=== PATIENT | female | born 1945 | race Caucasian/White ===

== ENCOUNTER → 2016-02-28 | Outpatient (CLI) | payer OTHER ==
[~2016-02-28] MED LIST: ASPCH81 PO; CLTP PO
[2016-02-28 13:46] LABS: BASO % 0.3 %; BASO ABS # 0.02 K/uL (0-0.2); COMPLETE YES; EOS % 0.9 %; HEMATOCRIT 37.1 % (37-47); IG% 0.2 %; LYMPH % 28.7 %; LYMPH ABS # 1.68 K/uL (1.2-3.4); MEAN CELL VOLUME 82.3 fL (80-100); MEAN CORPUSCULAR HEMOGLOBIN 27.5 pg (25-34); MEAN CORPUSCULAR HGB CONC 33.4 g/dl (32-36); MEAN PLATELET VOLUME 9.1 fL (7.4-10.4); MONO % 7.8 %; NEUT % 62.1 %; PLATELET COUNT 312 K/uL (130-400); RED BLOOD COUNT 4.51 M/uL (4.2-5.4); WHITE BLOOD COUNT 5.86 K/uL (4.8-10.8)
--- NOTE | 2016-02-28 13:51 | DIAGNOSTIC IMAGING REPORT ---
CHEST 2 VIEWS ROUTINE CLINICAL HISTORY: Atypical chest pain COMPARISON STUDY: No previous studies for comparison. FINDINGS: The cardiac and mediastinal contours are normal. There is no evidence of focal pulmonary consolidation. There is no evidence of failure. No pleural effusions are visualized.[ There is an air-containing retrocardiac opacity consistent with a hiatal hernia. IMPRESSION: No active disease in the chest. Electronically signed by: Brayden Ham M.D. 02/28/2016 1:49 PM
[2016-02-28 15:02] LABS: ALT/SGPT 26 U/L (12-78); AST/SGOT 15 U/L (15-37); BLOOD UREA NITROGEN 12 mg/dl (7-18); BUN/CREATININE RATIO 19.3 (10-20); CALCIUM 9.1 mg/dl (8.5-10.1); CARBON DIOXIDE 25 mmol/L (21-32); CHLORIDE 104 mmol/L (98-107); CREATININE 0.64 mg/dl (0.60-1.20); GLUCOSE 93 mg/dl (70-99); POTASSIUM 3.9 mmol/L (3.5-5.1); SODIUM 140 mmol/L (136-145)
[2016-02-28 15:09] LABS: ALB/GLOB RATIO 1.2 (0.9-2); ALKALINE PHOSPHATASE 87 U/L (45-117)
== END | disposition home or self-care (01) ==
LOC: C.RADBC 12:53
PROVIDERS: ATTEND Family Medicine
DX: R07.9 Chest pain, unspecified (principal)

== ENCOUNTER → 2016-03-13 | Outpatient (CLI) | payer OTHER ==
--- NOTE | 2016-03-13 16:56 | MAMMOGRAPHY REPORT ---
BILATERAL DIGITAL DIAGNOSTIC MAMMOGRAM TOMOSYNTHESIS WITH CAD: 03/13/2016 CLINICAL HISTORY: Routine screening. Patient has no complaints. TECHNIQUE: Bilateral CC and MLO 2-D digital and tomosynthesis images, spot magnification left CC and ML views were obtained. Current study was also evaluated with a Computer Aided Detection (CAD) sys tem. COMPARISON: Comparison is made to exams dated: 09/05/2015 mammogram, 03/07/2015 mammogram, 09/01/2014 m ammogram, 02/08/2010 mammogram, 02/07/2009 mammogram - [facility], and 02/01/2008. BREAST COMPOSITION: The tissue of both breasts is heterogeneously dense, which may obscure small ma sses. FINDINGS: There is expected architectural distortion and associated central dystrophic calcification in the 9:00 middle one third of the left breast, at the site of prior lumpectomy. There are adelaida us rodlike secretory calcifications throughout the left mid of the right breast and a few benign rim calcifications. The rodlike calcifications are larger and more coarse when comparing to prior exam s, confirming benignity. No new suspicious mass, architectural distortion or cluster of microcalcif ications is seen. IMPRESSION: ACR BI-RADS CATEGORY 2: BENIGN Stable bilateral mammograms, without mammographic evidence of malignancy. Stable post surgical rae ges in the 9:00 left breast. Recommend bilateral mammography in one year and would recommend remain ing a diagnostic patient in case any additional spot magnification views are needed. These results and recommendations were discussed with the patient at the time of the exam. Approximately 10% of breast cancers are not detected with mammography. A negative mammographic repor t should not delay biopsy if a clinically suggestive mass is present. Renetta Lowe M.D. ay/:03/13/2016 15:10:57 Mining Teacher: Jalyn JONES(Michelle)(Ann), [facility] letter sent: Normal 1/2 BI-RADS Code: ACR BI-RADS Category 2: Benign
== END | disposition home or self-care (01) ==
LOC: C.MAMM 12:44
PROVIDERS: ATTEND Surgery
DX: R92.8 Other abnormal and inconclusive findings on diagnostic imaging of breast (principal)

== ENCOUNTER → 2016-10-10 | Outpatient (CLI) | payer OTHER ==
[2016-10-10 13:25] LABS: HEMATOCRIT 37.6 % (37-47)
[2016-10-10 14:10] LABS: ESTIMATED AVERAGE GLUCOSE 126 mg/dl; HA1C FLAG Normal (Normal)
[2016-10-10 15:09] LABS: ALT/SGPT 23 U/L (12-78); BLOOD UREA NITROGEN 18 mg/dl (7-18); BUN/CREATININE RATIO 27.1 (10-20); CALCIUM 8.9 mg/dl (8.5-10.1); CARBON DIOXIDE 27 mmol/L (21-32); CHLORIDE 107 mmol/L (98-107); CREATININE 0.66 mg/dl (0.60-1.20); GLUCOSE 98 mg/dl (70-99); POTASSIUM 3.9 mmol/L (3.5-5.1); SODIUM 140 mmol/L (136-145)
== END | disposition home or self-care (01) ==
LOC: C.LABMFLN 08:14
PROVIDERS: ATTEND Family Medicine
DX: E66.01 Morbid (severe) obesity due to excess calories (principal); D64.9 Anemia, unspecified; R73.03 Prediabetes

== ENCOUNTER → 2017-03-05 | Outpatient (CLI) | payer OTHER ==
--- NOTE | 2017-03-05 15:32 | MAMMOGRAPHY REPORT ---
BILATERAL DIGITAL SCREENING MAMMOGRAM TOMOSYNTHESIS WITH CAD: 03/05/2017 CLINICAL HISTORY: Asymptomatic. Personal history of breast cancer. TECHNIQUE: Breast tomosynthesis in addition to standard 2D mammography was performed. Current study was also evaluated with a Computer Aided Detection (CAD) system. COMPARISON: Comparison is made to exams dated: 03/13/2016 mammogram, 03/07/2015 mammogram, 11/30/2013 m ammogram, 06/24/2012 mammogram, 03/20/2011 mammogram, and 02/08/2010 mammogram - [facility]. BREAST COMPOSITION: The tissue of both breasts is heterogeneously dense, which may obscure small mas ses. FINDINGS: No suspicious masses, calcifications, or areas of architectural distortion are noted in ei ther breast. There has been no significant interval change compared to prior exams. There are stable postoperative changes in the left medial breast from prior lumpectomy, including architectural disto rtion and coarse benign dystrophic calcifications at the surgical bed. Scattered bilateral benign-ap pearing calcifications are not significantly changed. IMPRESSION: ACR BI-RADS CATEGORY 2: BENIGN There is no mammographic evidence of malignancy. A 1 year screening mammogram is recommended. The pa tient will receive written notification of the results. Approximately 10% of breast cancers are not detected with mammography. A negative mammographic report should not delay biopsy if a clinically suggestive mass is present. Rissa Browne M.D. /:03/05/2017 14:14:37 Lens Polisher: Beth JONES(Michelle)(Ann), [facility] letter sent: Normal 1/2 BI-RADS Code: ACR BI-RADS Category 2: Benign
== END | disposition home or self-care (01) ==
LOC: C.MAMM 13:02
PROVIDERS: ATTEND Obstetrics & Gynecology
DX: Z12.31 Encounter for screening mammogram for malignant neoplasm of breast (principal); Z85.3 Personal history of malignant neoplasm of breast

== ENCOUNTER → 2017-06-10 | Outpatient (CLI) | payer OTHER | END | disposition home or self-care (01) | LOC: C.PAPS 16:14 | PROVIDERS: ATTEND Obstetrics & Gynecology | DX: Z12.4 Encounter for screening for malignant neoplasm of cervix (principal) ==

== ENCOUNTER 2019-11-30 09:36 | Observation (INO) ==
--- NOTE | 2019-11-25 16:25 | Anesthesiology Consultation ---
Date of Service November 25, 2019 Assessment & Plan (1) Encounter for pre-operative examination: - Per assessment on 11/24: Travel screen- negative. No known COVID-19 positive contacts or current COVID-19 related symptoms. Patient had preop COVID testing 11/24 ([place]). Results pending. - S/P EGD: 10/28/19: MAC sedation at [facility] - S/P lap christiano: 10/30/17: Grade view 1, DVL --> Glidescope MAC#3, atraumatic, ETT 7.0 at [facility] Chart Review Chart Review: Acceptable Risk for Surgery and Patient NOT seen in Pre Admission Testing History Surgery Operation Date: 11/30/19 11:25 Proposed Procedures p Laparoscipic Hiatal Hernia Repair with Fundoplication - Buck Morales, Height/Weight Height: 4 ft 11.5 in Weight: 87.09 kg Allergies Allergy/AdvReac Type Severity Reaction Status Date / Time chlorhexidine Allergy Severe severe Verified 11/25/19 16:19 itching, burning perfume Allergy Severe watery Verified 11/25/19 16:19 eyes, sneezing latex Allergy Intermediate hives Verified 11/25/19 16:19 cat dander Allergy Unknown congestion Verified 11/25/19 13:25 Sulfa (Sulfonamide AdvReac Severe dizziness, Verified 11/25/19 16:19 Antibiotics) lights flashing, "sees things" vinyl Allergy Unknown contact Uncoded 11/25/19 16:19 dermatitis, redness, swelling Medications Home Medications Medication Instructions Recorded Confirmed Last Taken aspirin [Aspirin Low Dose] 81 mg PO QPM #0 10/21/17 11/25/19 10/22/19 losartan 25 mg tablet 25 mg PO QPM #90 tab 05/05/19 11/25/19 10/27/19 21:30 esomeprazole magnesium 40 mg 40 mg PO DAILY@1400 #90 cap 07/27/19 11/25/19 10/27/19 14:00 capsule,delayed release calcium carbonate [Calcium 500] 500 mg PO Q OTHER DAY 10/22/19 11/25/19 10/26/19 fluticasone propionate [Flonase] 1 spray INTRANASAL BID PRN 11/25/19 11/25/19 Unknown Past Medical History Medical History (Updated 10/01/20 @ 16:20 by Jocelyn Caceres) Chronic back pain GERD (gastroesophageal reflux disease) History of breast cancer DCIS L breast; s/p XRT (2014) Hypertension Obesity Prediabetes per records Past Family History Family History Father Heart disease Myocardial infarction Sister Heart disease Myocardial infarction Brother Heart disease Mother Breast cancer Denies family history of Ovarian cancer Prostate cancer Colorectal cancer Colonic polyp Past Surgical History Surgical History (Updated 11/25/19 @ 16:24 by Jocelyn Caceres) History of bilateral tubal ligation History of breast biopsy LEFT History of carpal tunnel release BILATERAL History of cataract surgery BILATERAL History of colonoscopy History of difficult intubation lap christiano: 10/30/17: Grade view 1, DVL --> Glidescope MAC#3, atraumatic, ETT 7.0 at [facility] History of esophagogastroduodenoscopy (EGD) History of esophagogastroduodenoscopy (EGD) (10/28/19) Esophagogastroduodenoscopy Dr. Morales 10/28/2019 History of laparoscopic cholecystectomy Laparoscopic Cholecystectomy 10-30-17 Dr. Morales History of total knee replacement BILATERAL Past Anesthesia History Difficult Airway (lap christiano: 10/30/17: Grade view 1, DVL --> Glidescope MAC#3, atraumatic, ETT 7.0 at [facility]) Social History Smoking Status: Never smoker Do You Dip or Chew Tobacco: No Hx Alcohol Use: Yes Alcohol type: beer, wine and hard liquor alcohol intake frequency: holidays/special occasions only Hx Substance Use: No substance use type: does not use Testing Laboratory Results 10/19/19 WBC: 7.15 H/H: 12.6/39.6 PLATELETS: 353 SODIUM: 139 POTASSIUM: 3.9 CHLORIDE: 106 CO2: 27 BUN: 16 CREATININE: 0.66 GLUCOSE: 99 Electrocardiogram Date: 10/22/19 NSR at 86bpm. Possible LAE. Stress Test Date: 04/01/16 Type: exercise (ECHO) Findings: + WNL and + achieved max HR (92%MPHR); no ischemia Resting EF: 61 [address] LV Function: normal Valvular Disease: no significant valvular disease Negative exercise stress echo and stress EKG for ischemia at 92% MPHR. Mild cLVH
[~2019-11-30 09:36] MED LIST changes: -ASPCH81 PO; +CEFAZOLIN 2000MG 2,000 MG/15 ML SYR IV SCH; -CLTP PO; +LR 15ML/HR IV SCH
[2019-11-30] MEDS ORDERED: HYDROmorphone INJ 1 MG/ML SYRINGE IV PRN (10:13)
[2019-11-30] MEDS ORDERED: ONDANSETRON INJ 2 MG/ML 2 ML VIAL IV PRN ×2 (10:13→15:32)
[2019-11-30] MEDS ORDERED: MEPERIDINE HCL 25 MG/ML CARP/VIAL IV PRN (10:13)
[2019-11-30] MEDS ORDERED: LABETALOL HCL IV 5 MG/ML 20ML IV PRN (10:13)
[2019-11-30] MEDS ORDERED: PHENYLEPHRINE 100MCG/ML 5ML SYR IV PRN (10:13)
[2019-11-30] MEDS ORDERED: ePHEDrine sulfate 50 MG/ML AMP IV PRN (10:13)
[2019-11-30] MEDS ORDERED: ATROPINE SULFATE 0.1 MG/ML 10ML SYR IV PRN (10:13)
[2019-11-30] MEDS ORDERED: MIDAZOLAM HCL 1 MG/ML 2ML VIAL ONE (10:35)
[2019-11-30] MEDS ORDERED: fentaNYL citrate 100 MCG/2 ML VIAL ONE (10:35)
[2019-11-30] MEDS ORDERED: EPINEPHrine INJ 1 MG/ML AMP ONE (11:24)
[2019-11-30] MEDS ORDERED: BUPIVACAINE 0.5 % 5 MG/1 ML MPF 30ML VIAL ONE (11:24)
--- NOTE | 2019-11-30 11:35 | History & Physical Bridge Note ---
Date of Service November 30, 2019 History & Physical Bridge Note I have examined the patient, reviewed the History & Physical and in the interval since the performance of the History & Physical I have noted the following changes of clinical significance: no changes noted
[2019-11-30] MEDS ORDERED: MINERAL OIL LIGHT 10 ML BTL ONE (11:57)
[2019-11-30] MEDS ORDERED: PHENYLEPHRINE 100MCG/ML 5ML SYR ONE (12:33)
[2019-11-30] MEDS ORDERED: PHENYLEPHRINE HCL 10 MG/ML VIAL ONE (12:33)
[2019-11-30] MEDS ORDERED: LABETALOL HCL IV 5 MG/ML 20ML IV ONE (12:33)
[2019-11-30] MEDS ORDERED: LIDOCAINE HCL 2% 2 ML VIAL/AMP(20MG/ML) INFIL ONE (12:33)
[2019-11-30] MEDS ORDERED: ePHEDrine sulfate 50 MG/ML SYR ONE (12:33)
[2019-11-30] MEDS ORDERED: ONDANSETRON INJ 2 MG/ML 2 ML VIAL ONE (12:33)
[2019-11-30] MEDS ORDERED: DEXAMETHASONE SOD INJ 4 MG/ML VIAL ONE (12:33)
[2019-11-30] MEDS ORDERED: NEOSTIGMINE METHYLSULFATE 5 MG/5 ML SYR ONE (12:33)
[2019-11-30] MEDS ORDERED: PROPOFOL IV EMULSION 10 MG/ML 20 ML VIAL IV ONE (12:33)
[2019-11-30] MEDS ORDERED: LARYING-O-JET KIT (LTA) ONE (12:33)
[2019-11-30] MEDS ORDERED: ROCURONIUM BROMIDE 10 MG/ML 5 ML VIAL IV ONE (12:33)
[2019-11-30] MEDS ORDERED: GLYCOPYRROLATE 0.2 MG/ML VIAL ONE ×2 (12:33→14:04)
--- NOTE | 2019-11-30 13:42 | Operative Report ---
PG Post Operative Report Pre & Post Diagnosis Operation Date: 11/30/19 11:25 Pre-Op Diagnosis: Hiatal Hernia;gerd Post-Op Diagnosis: Hiatal Hernia;gerd;adhesions I identified the patient and participated in the time-out.: Yes Procedure Operation Date: 11/30/19 11:25 Actual Procedures p Laparoscopic Hiatal Hernia Repair with 360 degree Fundoplication, posterior gastropexy, enterolysis(Not Applicable) - Buck Morales DO Surgeon Buck Moarles DO Assistant Director Of Nursing bradford Travis Estimated Blood Loss 5 Findings Consistent with Post-Op Diagnosis Specimens none Description of Procedure After informed consent was obtained the patient was taken to the operating room and placed in supine position. After successful intubation the abdomen was sterilely prepped and draped in usual fashion. I began with a supraumbilical incision with an 11 blade scalpel. This was carried down through the soft tissue using cautery. The anterior rectus fascia was opened using cautery and two #0 Vicryl stay sutures were placed. Peritoneum was elevated with hemostats and incised under direct vision using a Metzenbaum scissor. A finger sweep was performed and a 12 mm Pulido trocar was placed. The abdomen was insufflated to 20 mmHg. Laparoscope was inserted and the abdomen examined in 360 degrees. A subxiphoid 12 mm port, a right upper quadrant 5 mm port a right flank 5 mm port and a left flank 5 mm port were all placed under direct vision. The patient was placed in a steep reverse Trendelenburg position. A liver retractor attached to the table was used throughout the case to elevate the left lobe of the liver. There were some adhesions in the upper midline and left upper quadrant from previous surgeries. These involved some stomach and omentum and were taken down using a harmonic scalpel. Once we elevated the left lobe of the liver there was probably 75% of the stomach incarcerated within the thoracic cavity. We were able to gently reduce this using graspers. We began along the right jacqueline of the diaphragm and again using the harmonic scalpel we began taking down the hernia sac. We continued up the right jacqueline of the diaphragm and around anteriorly. Next we moved to the lateral side of the stomach and took down the top 4 or 5 short gastric vessels again using the harmonic scalpel. We continued superiorly and took down the hernia sac attached to the left jacqueline of the diaphragm. We continued up and around until we completely excised the sac in 360 degrees. At this point we had anesthesia passed a 50 Macedonian bougie which occurred without difficulty. Once I took down the hernia sac the entire stomach laid in the abdominal cavity completely reduced and without tension on it. I elevated the stomach and identified the left and right jacqueline of the diaphragm posteriorly. We used 0 Surgidac with the Endo Stitch device to primarily close the hernia defect posteriorly. We then used the same technique using 0 Surgidac and closed the diaphragmatic hernia anteriorly. This was able to be done with minimal tension. Next I created a window posterior to the stomach distal to the diaphragm. A reticulating grasper was able to be placed through this window and reticulated. I was able to easily grasp the fundus of the stomach and pull it through this retrogastric window. I was able to easily perform a shoeshine test and there was minimal tension. I performed a posterior gastropexy again with 0 Surgidac securing the undersurface of the fundus to the right jacqueline of the diaphragm. I then completed the 360 degree fundoplication by using 0 Surgidac to grab body of the stomach lateral to the esophagus grasping a small amount of the esophageal fat pad and then completing it by suturing to the fundus of the stomach which was now on the medial side. 3 separate stitches were used to create a 3 to 4 cm wrap lengthwise. When we removed the bougie the wrap laid nice and tension- free. We irrigated the upper abdomen. There was adequate hemostasis. No other gross abnormalities were identified. The liver retractor was removed as were all of the trochars. We desufflated the abdomen. I closed the fascia of the camera port using 0 Vicryl in a [id number] fashion. The wounds were all irrigated and closed using 4-0 Monocryl. Marcaine was injected around them for postoperative analgesia and skin glue used as a dressing. The patient was awakened extubated and transferred to recovery in stable condition. My physician higher level teaching assistant was present for the entire case. He helped prep the pat ient. He helped run the camera as well as with retraction throughout my dissection. He helped with wound closure and dressing placement as well. I attest to the content of the Intraoperative Record and any orders documented therein. Any exceptions are noted below.
[2019-11-30] MEDS ORDERED: ACETAMINOPHEN 1,000 MG/100 ML VIAL IV STA (14:08)
[2019-11-30] MEDS ORDERED: GLYCOPYRROLATE 0.2 MG/ML VIAL IV ONE (14:09)
[2019-11-30] MEDS ORDERED: ACETAMINOPHEN 1000 MG/100 ML IV IV ONE (14:09)
[2019-11-30] MEDS: fentaNYL citrate 100 MCG/2 ML VIAL IV PRN ×2 (14:11→14:16)
--- NOTE | 2019-11-30 14:48 | Anesthesiology Progress Note ---
Date of Service November 30, 2019 Anesthesia Post Procedure Vital Signs Vital Signs: Temp Pulse Pulse Resp BP Pulse Ox 11/30/19 14:35 36.2 C L 65 16 156/89 H 100 11/30/19 14:25 68 15 156/81 H 98 11/30/19 14:15 75 14 165/75 H 96 11/30/19 14:05 65 13 164/80 H 100 11/30/19 13:55 44 L 44 L 15 163/79 H 99 11/30/19 13:45 52 L 52 L 20 162/71 H 98 11/30/19 13:36 36.3 C L 66 66 21 170/81 H 97 11/30/19 09:57 37.5 C 83 20 160/71 H 100 Pain Intensity Abdomen: Pain Intensity: 2 Transfer of Care Handoff Completed per policy Notes Mental Status: alert / awake / arousable Patient Amnestic to Procedure: Yes Nausea / Vomiting: adequately controlled Pain: adequately controlled Airway Patency, RR, SpO2: stable & adequate BP & HR: stable & adequate Hydration State: stable & adequate Anesthetic Complications: no major complications apparent and Pt Satisfied with anesthetic care Notes: The patient is awake and comfortable.
[2019-11-30] MEDS ORDERED: MoRPHine SULFATE 2 MG/ML CARP IV PRN (15:32)
[2019-11-30] MEDS ORDERED: FLUTICASONE PROPIONATE NA SPR 16 GM BTL NAE PRN (15:32)
[2019-11-30] MEDS ORDERED: PROMETHAZINE HCL 12.5 MG in SODIUM CHLORIDE 0.9% 50 ML IV PRN (15:32)
[2019-11-30] MEDS ORDERED: MoRPHine SULFATE 4 MG/ML 1 ML CARP\\VIAL IV PRN (15:32)
[2019-11-30] MEDS: LACTATED RINGER'S 1,000 ML IV SCH (15:39)
[2019-11-30] MEDS: HYDROCODONE/ACETAMOPHEN 5/325MG TAB PO PRN ×3 (15:50→18:00)
[2019-11-30] MEDS ORDERED: PANTOprazole 40 MG TAB PO SCH (17:00)
[2019-11-30] MEDS ORDERED: HydrALAZINE HCL 20 MG/ML VIAL IV PRN (17:47)
[2019-11-30] MEDS ORDERED: LOSARTAN POTASSIUM 25 MG TAB PO SCH (21:00)
[2019-12-01] MEDS: LACTATED RINGER'S 1,000 ML IV SCH (02:18)
[2019-12-01] MEDS ORDERED: PANTOprazole 40 MG TAB PO STA (07:47)
--- NOTE | 2019-12-01 07:50 | Surgery Progress Note ---
Date of Service December 01, 2019 Assessment & Plan (1) Hiatal hernia: POD 1 lap Odin will give PPI this Am instead afternoon full liquid lunch recheck later for possible d/c as above. griselda liquids. no nausea currently. will re-eval after lunch for possible d/c. pain controlled. no emesis. post op instructions discussed. Admission and Anticipated Discharge Date Admission Date: November 30, 2019 Subjective some nausea overnight, heartburn this Am, minimal pain Physical Exam Gastrointestinal (Abdomen): Inspection/Auscultation: + abdominal surgical incision Percussion/Palpation: abdomen soft Results & Data ([facility]) Vital Signs (Past 12 Hours) Vital Signs Temp Pulse Pulse Resp BP BP Pulse Ox 12/01/19 07:28 36.7 C 68 16 132/52 L 93 12/01/19 02:16 36.6 C 68 16 123/70 94 11/30/19 22:52 36.6 C 87 16 144/73 H 91 11/30/19 20:06 78 147/76 H PG Care Time/CCT Total # of Minutes Spent Total Time Spent with Patient: Total time spent is greater than 50% in coordination of care (as documented) at patient's floor/unit and/or counseling patient: Coding Level of Care Code None Diagnoses Hiatal hernia K44.9
[2019-12-01] MEDS: HYDROCODONE/ACETAMOPHEN 5/325MG TAB PO PRN ×2 (10:34→12:46)
--- NOTE | 2019-12-01 13:34 | Discharge Summary ---
Date of Service December 01, 2019 Principal Diagnosis Hiatal hernia GERD Discharge Exam Gastrointestinal (Abdomen) Inspection/Auscultation: + abdominal surgical incision (clean, dry) Percussion/Palpation: abdomen soft Discharge Data Allergies Allergy/AdvReac Type Severity Reaction Status Date / Time chlorhexidine Allergy Severe severe Verified 11/30/19 10:03 itching, burning perfume Allergy Severe watery Verified 11/30/19 10:03 eyes, sneezing latex Allergy Intermediate hives Verified 11/30/19 10:03 cat dander Allergy Unknown congestion Verified 11/30/19 10:03 Sulfa (Sulfonamide AdvReac Severe dizziness, Verified 11/30/19 10:03 Antibiotics) lights flashing, "sees things" vinyl Allergy Unknown contact Uncoded 11/25/19 16:19 dermatitis, redness, swelling Procedures Performed Operation Date: 11/30/19 11:25 Actual Procedures p Laparoscopic Hiatal Hernia Repair with Fundoplication, posterior gastroplasty, enterolysis(Not Applicable) - Buck Morales DO Hospital Course (1) Hiatal hernia: 74 y/o female with hiatal hernia and GERD was taken to the OR for laparoscopic Odin fundoplication and was transferred to the surgical floor for overnight observation. She had some nausea overnight that resolved by the morning. She was able to tolerate liquid diet and oral analgesics. She was stable for discharge home. Total Time Total Time Spent Total Time Spent (In Minutes): 15 Discharge Plan Discharge Items Patient Disposition: Home - Self-Care Reason For Visit: Hiatal Hernia Discharge Diagnosis: hiatal hernia repair Activity: Per Instructions section Lifting: No more than 10 pounds Bathing Comment: may shower; no soaking in tubs/pools Exercise/Sports: Wait until after follow-up appointment Non-emergency contact: Surgeon Call non-emergency contact if: you have any medication questions, your symptoms worsen, your pain is not controlled, your pain is worsening, you have a fever, your temperature is above 101.5, your wound has increased redness, your wound has increased drainage and your wound pain has increased Follow-up/Referrals: Buck Morales DO [Surgeon] - (Please call to schedule follow up in clinic within 1-2 weeks) Deven oCrtez DO [Primary Care Provider] - Diet: Full liquid Diet Comment: soft/liquidy foods- that can be eaten with a spoon Michael Attending Provider Instructions: Pending Studies at Discharge: No Stand-Alone Forms: [facility] Medications and DC Order Prescriptions: New ondansetron HCl [Zofran] 4 mg tablet 4 mg PO Q6H PRN (Reason: nausea and vomiting) Qty: 10 RF: 0 Continued aspirin [Aspirin Low Dose] 81 mg Tablet,Delayed Release (Dr/Ec) 81 mg PO QPM Qty: 0 RF: 0 losartan [Cozaar] 25 mg tablet 25 mg PO QPM Qty: 90 RF: 1 esomeprazole magnesium [Nexium] 40 mg capsule,delayed release(DR/EC) 40 mg PO DAILY@1400 Qty: 90 RF: 3 fluticasone propionate [Flonase] 50 mcg/actuation [place],Suspension 1 spray INTRANASAL BID PRN (Reason: Allergy Symptoms) RF: 0 calcium carbonate [Calcium 500] 500 mg calcium (1,250 mg) Tablet 500 mg PO Q OTHER DAY RF: 0 Discharge Orders: Discharge Order (Routine); Ordered 12/01/19 Ordered By: Alfredo Travis Admission Data Admit Date/Time: 11/30/19 13:45 Attending Provider: Buck Morales Admit Provider: Buck Morales Primary Care Provider: Deven Cortez Coding Level of Care Code D/C Day Management <30 mins Diagnoses Hiatal hernia K44.9
== END 2019-12-01 15:03 | disposition home or self-care (01) ==
LOC: 3N 09:36 → ASU 09:36